=== PATIENT | male | born 1950 | race Caucasian/White ===

== ENCOUNTER 2019-04-13 06:07 | Day surgery (SDC) | payer OTHER ==
--- NOTE | 2019-03-21 13:51 | HP ---
DATE OF ADMISSION: 04/13/2019 REASON FOR ADMISSION: Right inguinal hernia. BRIEF HISTORY: This is a 68-year-old gentleman who I initially met in October of 2018 for a right inguinal hernia. At that time, the patient had a 2-3 week history of pain in the right groin. It was described to be episodic in nature and 2 weeks after the initial event of pain, he then discovered a bulge in the groin. His primary care physician had noted a right inguinal hernia, and he had seen a surgeon from [place] at that time to undergo an open right inguinal hernia repair. I had given him a 2nd opinion in October, and now he is here today for repair of his open right inguinal hernia. The patient has no change in bowel habits, history of sharp pain in the right groin region. He has no change in size of the hernia, since its discovery. PAST MEDICAL HISTORY: Denies cardiac disease, hypertension, diabetes. PAST SURGICAL HISTORY: Patient has a history of BPH and underwent a Greenlight procedure. He has also had a robotic resection of a bladder diverticulum. MEDICATION: Various vitamins. ALLERGIES: None. SOCIAL HISTORY: He does not smoke or drink. PHYSICAL EXAMINATION: Patient examined in erect and supine position. He had a moderate size right inguinal hernia which was reducible in the supine position. The right scrotum and testicles were within normal limits. No obvious contralateral findings. Patient has very well healed scars from his robotic procedure. On exam, he has an aorta that is approximately 4 cm or so. IMPRESSION/PLAN: Right inguinal hernia: This is a 67-year-old gentleman symptomatic from a right inguinal hernia. I spent a very long time with this gentleman discussing the various surgical approaches, and ultimately the patient does want the most minimalistic approach and does not want any permanent type of mesh. Patient will be scheduled for an open right inguinal hernia repair (not a great candidate given his robotic bladder surgery in the past). Patient also does not wish to have any long lasting mesh and therefore is only agreeable to having Phasix placed. We did discuss the pros and cons of permanent suture versus dissolvable, and the patient has opted to go with permanent suture. Patient will be scheduled for an open right inguinal hernia repair with Phasix mesh and with permanent suture. Independent of the hernia repair, the patient is noted to be very tall and thin and fairly lanky in nature, and this could be consistent with Marfan's, and therefore on my initial consultation I have asked him to follow up with an ultrasound by his primary care physician to rule out for Marfan syndrome. The patient complied and underwent an ultrasound performed of his aorta. The ultrasound demonstrated no evidence of aneurysm and his aorta is 2.5 cm in diameter. Patient will be scheduled for open right inguinal hernia repair with Phasix plug. Indication, alternatives, and complications of the procedure discussed. Questions answered. Will plan on obtaining written consent the day of surgery. Simone BEDOLLA [id number] cc: Dr. Khadijah ANNA
[2019-04-05 10:50] VITALS: BMI 24.1
[2019-04-13] MEDS ORDERED: MIDAZOLAM HCL 2 MG/2 ML SINGLE DOSE VIAL ONE ×2 (07:25→07:27)
[2019-04-13] MEDS ORDERED: SUCCINYLCHOLINE CHLORIDE 200 MG/10 ML SYRINGE ONE (07:26)
[2019-04-13] MEDS ORDERED: ROPIVACAINE HCL 0.5% 30ML VIAL ONE (07:26)
[2019-04-13] MEDS ORDERED: ROCURONIUM BROMIDE 50 MG/5 ML SYRINGE ONE (07:26)
[2019-04-13] MEDS ORDERED: PROPOFOL 20 ML ONE ×2 (07:28)
[2019-04-13] MEDS ORDERED: EPHEDRINE SULFATE/0.9% NACL/PF 50 MG/10 ML SYRINGE NR ONE (08:50)
[2019-04-13] MEDS ORDERED: DEXAMETHASONE SOD PHOSPHATE 4 MG/1 ML VIAL ONE (09:15)
[2019-04-13] MEDS ORDERED: BUPIVACAINE HCL 0.25% 125 MG/50 ML VIAL ONE (09:15)
[2019-04-13] MEDS ORDERED: BUPIVACAINE HCL/PF 2.5 MG/ML - 30 ML VIAL IJ ONE (09:15)
[2019-04-13] MEDS ORDERED: DEXAMETHASONE SOD PHOSPHATE 4 MG/1 ML VIAL NR ONE (09:50)
[2019-04-13] MEDS ORDERED: BUPIVACAINE HCL/PF 0.25% (2.5MG/ML) 10 ML VIAL IJ ONE (09:50)
[2019-04-13 11:04] VITALS: TEMP 98.2
[2019-04-13] MEDS ORDERED: ONDANSETRON 4 MG/2 ML VIAL IVPUSH PRN (11:20)
[2019-04-13] MEDS ORDERED: oxyCODONE HCL 5 MG TABLET PO PRN ×2 (11:20)
[2019-04-13] MEDS ORDERED: PROMETHAZINE HCL 25 MG/1 ML VIAL IVPUSH PRN (11:20)
--- NOTE | 2019-04-13 13:26 | OP ---
DATE OF OPERATION: 04/13/2019 PREOPERATIVE DIAGNOSIS: Right inguinal hernia. POSTOPERATIVE DIAGNOSIS: Large right pantaloon inguinal hernia. PROCEDURE: Right component separation, repair of right inguinal hernia with mesh (Phasix), right rectus sheath transversus abdominis block given by the 1st [employer] assistant, 8-cm intermittent wound closure. SURGEON: Jake Ware MD AUTOMOTIVE PRODUCTION WORKER: Daniel Eckert DO ANESTHESIA: Remy Mclean MD (LMA). ESTIMATED BLOOD LOSS: Minimal. SPECIMEN: Hernia sac. INDICATION FOR PROCEDURE: This is a 68-year-old gentleman with a known chronic right inguinal hernia. It is causing him more discomfort at this point, and he wishes to have this repaired. Patient and myself had a long conversation regarding pros and cons of mesh, and he has opted to proceed with Phasix mesh and permanent sutures. DESCRIPTION OF PROCEDURE: Patient identified and appropriately positioned on the operating room table. After placement of LMA, the right groin was prepped and draped in the usual sterile fashion with ChloraPrep. An 8-cm right inguinal incision was made deep in the subcutaneous tissue. Jory was divided sharply. The fascia of the external oblique divided through the external ring in the direction of its fibers sharply. The ilioinguinal nerve identified, retracted medially. The cord was then subsequently isolated at the pubic tubercle. In doing the dissection of the cremasterics and vasculature of the cord structures, a large indirect inguinal hernia sac identified anteromedially, the sac suture ligated at its back and divided and handed off as specimen. Patient also noted to have a direct inguinal hernia as well. The inguinal floor opened, and the inguinal floor was markedly attenuated from essentially the rectus junction of the conjoint tendon to the inguinal ligament. Given this finding, a limited component separation on the right side was performed to allow movement of the transversus and inguinal floor out laterally without tension. This is essentially no different than doing a counter incision after a Humble repair. The junction of the rectus and transversus and oblique was identified, and just lateral to this junction, the transversus was subsequently divided along with the obliques to allow a tension-free movement of this tissue to the right side to reconstruct the inguinal floor. Once the myofascial separation was completed, the inguinal floor opened. The fat incarcerated through the direct space was reduced back into the preperitoneal space. A Phasix plug was then placed into this space and then anchored with a multitude of 0 Prolene sutures. The inguinal floor then reconstructed in a tension-free fashion with a running 2-0 Prolene suture. The conjoint tendon was mobilized enough to bring laterally and sutured to the undersurface of the inguinal ligament. The internal ring was made to be snug. Once the inguinal floor was reapproximated, due to the weakness of the floor and attenuation of the tissue planes, a Phasix patch was then placed over the inguinal floor and then anchored with interrupted 2-0 Prolene sutures as well. The patch itself was keyholed to allowed placement and passage of the spermatic cord to reconstruct the internal ring. Next, the cord structures were returned to its anatomic position along with the ilioinguinal nerve. The fascia of the oblique reapproximated with a running 3-0 Vicryl suture. Jory was reapproximated with interrupted inverted 3-0 Vicryl suture and the skin closed with 4-0 Biosyn followed by Dermabond. At the conclusion of this case, sponge counts were correct. ATTESTATION: Brief operative note handwritten on the preprinted form. [facility] queried prior to giving any narcotics. Simone BEDOLLA [id number] cc: Dr. Nelson
[2019-04-13 13:56] VITALS: BP 141/69; PULSE 84
--- NOTE | 2019-04-18 11:11 | PATH ---
Surgical Pathology Report Patient Name: HELEN ADAMS Med. Rec. #: [id number] /Age/Gender: 1950 (Age: 68) / M Account: [id number] Location: [facility] Taken: 04/13/2019 Received: 04/13/2019 Reported: 04/18/2019 Physicians: Jake Ware Specimen(s) Received RIGHT INGUINAL HERNIA SAC Clinical History Right inguinal hernia Final Diagnosis SOFT TISSUE, RIGHT INGUINAL, EXCISION: HERNIA SAC WITH FOCAL CHRONIC INFLAMMATION. Electronically Signed Paul Kumar M.D. Gross Description Received in formalin labeled "right inguinal hernia sac," is a 7.5 x 2.4 x 1.8 cm portion of [place] fibromembranous tissue, consistent with a hernia sac. Trouble Clerk sections are submitted in one cassette. DL/04/15/2019 saudi04/15/2019
== END 2019-04-13 13:00 | disposition left against medical advice (07) ==
LOC: FASU 06:07
PROVIDERS: ATTEND Surgery
PROC: 0YU60JZ Supplement Left Inguinal Region with Synthetic Substitute, Open Approach (ICD-10-PCS; principal; 2019-04-13 08:30)
DX: K40.90 Unilateral inguinal hernia, without obstruction or gangrene, not specified as recurrent (principal)
CPT/HCPCS: 88302-TC; 94760